=== PATIENT | male | born 1955 | race Caucasian/White ===

== ENCOUNTER → 2018-10-24 | Day surgery (SDC) | payer MEDICARE, OTHER ==
[~2018-10-24] MED LIST: CYCL10TA2 PO; HYDR-2679 PO; HYDROmorphone 2 MG/ML VIAL IV PRN; IBUP-1060 PO; IV RINGERS,LACTATED 1000ML 1,000 ML IV SCH; LIDOCAINE 1% PF 2 ML VIAL. ID PRN; MORPHINE SULFATE 4 MG/ML VIAL. IV PRN; MULT-208 PO; OMEG1CAP6 PO; ONDANSETRON PF 4 MG/2 ML VIAL. IV PRN; PROCHLORPERAZINE 10 MG/2 ML VIAL. IV PRN; PROPOFOL 40 ML IV ONE; fentaNYL PF VIAL 100 MCG/2 ML VIAL IV PRN
--- NOTE | 2018-10-24 08:20 | CONS ---
DATE OF CONSULTATION: 10/24/2018 REFERRING PHYSICIAN: Dr. Taco Perez. REASON FOR CONSULTATION: Colorectal screening. HISTORY OF PRESENT ILLNESS: A 63-year-old male with past medical history of significant back surgery and inguinal hernia repair, who is seen in consultation for screening colon exam. Bowel habits are regular without diarrhea or constipation. There has been no melena and/or hematochezia. Weight and appetite are stable. No family history of colon polyps or colon cancer is noted. He is otherwise without additional complaints. PAST MEDICAL HISTORY: Status post back surgery, hernia repair, osteoarthrosis. ALLERGIES: None. MEDICATIONS: Include Ibuprofen 800 mg p.r.n., omega-3 fatty acids, fish oil 1 daily. FAMILY AND SOCIAL HISTORY: Significant for breast cancer with his mother, high blood pressure with his mother, heart attack with his father, stroke with his father. 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 REVIEW OF SYSTEMS: As per records. PHYSICAL EXAMINATION: GENERAL: Reveals a well-nourished, well-developed male. He is alert, cooperative, in no acute distress. VITAL SIGNS: Temperature is 97.3, pulse 78, respirations 20. HEENT: Normocephalic and atraumatic head. Pupils and extraocular muscles are not tested. Sclerae anicteric. NECK: Supple. LUNGS: Clear. CARDIOVASCULAR: Reveals an S1, S2 without S3, S4 or appreciable murmur. ABDOMEN: Reveals soft abdomen, normal bowel sounds without appreciable hepatosplenomegaly. EXTREMITIES: Reveals no cyanosis, clubbing or edema. IMPRESSION AND PLAN: Colorectal screening is warranted at this time. Risks and benefits of procedure including risk of hemorrhage and perforation during the operation have been discussed. The patient is willing to proceed. MIRIAN ALCANTARA MD DR: ELIZABETH/les JOB#: [id number] / [id number] TACO Whaley MD
[2018-10-24 08:53] VITALS: BP 112/62
--- NOTE | 2018-10-25 16:08 | PATHOLOGY ---
[facility] Accession Number: [id number] . 01 Material submitted: . HEPATIC FLEXURE POLYP . 01 Clinical history: . Screening . 02 Diagnosis: Colon biopsies, hepatic flexure polyp: - Tubular adenoma. (JPM:anu; 10/25/2018) QMS/10/25/2018 . 02 Comment: There is no high-grade dysplasia or evidence of malignancy. . 02 Electronically signed: . Himanshu Olson MD, Pathologist NPI- [id number] . 01 Gross description: . Received in formalin labeled "Leonard Akins, hepatic flexure polyp," are 2 segments of spencer soft tissue measuring 1.2 x 0.4 x 0.3 cm in aggregate dimensions and ranging from 0.5 to 0.7 cm in maximum dimension. The specimen is submitted entirely in cassette A1. (TSD; 10/24/2018) TOB/TOB . 02 Pathologist provided ICD-10: D12.3 . 02 CPT . 231173 Specimen Comment: A courtesy copy of this report has been sent to Specimen Comment: [phone], . Specimen Comment: Report sent to / DR DRAKE Performed at: 01 [facility] [address] [facility] [facility] [address] [facility] [address], [place], [place] [id number] MD Jeyson Curtis MD Phone: [phone] Performed at: 02 [facility] [address] [place], [place] [id number] MD Himanshu Olson MD Phone: [phone]
== END | disposition home or self-care (01) ==
LOC: ENDOS 07:06
PROVIDERS: ATTEND Internal Medicine Gastroenterology
DX: Z12.11 Encounter for screening for malignant neoplasm of colon (principal); D12.3 Benign neoplasm of transverse colon; K64.0 First degree hemorrhoids; M19.90 Unspecified osteoarthritis, unspecified site; Z79.899 Other long term (current) drug therapy; Z80.3 Family history of malignant neoplasm of breast; Z82.49 Family history of ischemic heart disease and other diseases of the circulatory system; Z82.3 Family history of stroke; Z98.890 Other specified postprocedural states
CPT/HCPCS: 45385; 88305; J2704; 45380

== ENCOUNTER → 2019-10-31 | Outpatient (CLI) | payer MEDICARE ==
[2018-10-24 08:53] VITALS: BP 112/62
[~2019-10-31] MED LIST changes: +BUPIVACAINE MPF 0.5% 10 ML VIAL for KCIC. IM ONE; +CONTRAST GIVEN. MC PRN; -HYDROmorphone 2 MG/ML VIAL IV PRN; +IOHEXOL 300 MG/ML 50 ML VIAL. INT ART ONE; -IV RINGERS,LACTATED 1000ML 1,000 ML IV SCH; +LIDOCAINE 1% Multi-Dose 20 ML VIAL. ID ONE; -LIDOCAINE 1% PF 2 ML VIAL. ID PRN; -MORPHINE SULFATE 4 MG/ML VIAL. IV PRN; -ONDANSETRON PF 4 MG/2 ML VIAL. IV PRN; -PROCHLORPERAZINE 10 MG/2 ML VIAL. IV PRN; -PROPOFOL 40 ML IV ONE; -fentaNYL PF VIAL 100 MCG/2 ML VIAL IV PRN; +methylPREDNISolone ACETATE 40 MG/ML VIAL. INT ART ONE
--- NOTE | 2019-10-31 12:08 | KCIC ---
Therapeutic right hip injection using fluoroscopic guidance: Indication: Right. hip pain.. Technique: The procedure was explained to the patient as were potential risks. All questions were answered. Informed written consent was obtained. The right hip was prepped and draped in the usual sterile manner. Following administration of local anesthetic, a 22-gauge spinal needle was advanced into the hip joint without difficulty, with care taken to avoid the vascular structures. Stylet was removed and following negative aspiration, a mixture of 5 cc Omnipaque-300, 2 cc (80 mg) Depo-Medrol and 8 cc 0.5% bupivacaine were injected without difficulty. Fluoroscopy demonstrates uniform and satisfactory distribution of the injection through the hip. The needle was removed. There was good hemostasis at the injection site. The patient left in stable condition without immediate complication. The patient was given postprocedural instructions, instructed to contact us or the emergency room if there are any complications. 52 seconds fluoroscopic time used for the study. One image shows needle tip at the lateral femoral head/neck junction with contrast material extending throughout the joint space. There is moderate to severe degenerative change at the right hip joint. Impression: Successful right hip therapeutic injection. Electronically signed by: Leonard Samuel MD (10/31/2019 12:05 PM) [facility]-KCIC2
== END | disposition home or self-care (01) ==
LOC: KCIC 10:13
PROVIDERS: ATTEND Orthopaedic Surgery
DX: M25.551 Pain in right hip (principal)
CPT/HCPCS: 20610; 77002; J1030; Q9967

== ENCOUNTER → 2019-11-25 | Outpatient (CLI) | payer MEDICARE ==
[2018-10-24 08:53] VITALS: BP 112/62
[~2019-11-25] MED LIST changes: -BUPIVACAINE MPF 0.5% 10 ML VIAL for KCIC. IM ONE; -CONTRAST GIVEN. MC PRN; -IOHEXOL 300 MG/ML 50 ML VIAL. INT ART ONE; -LIDOCAINE 1% Multi-Dose 20 ML VIAL. ID ONE; -methylPREDNISolone ACETATE 40 MG/ML VIAL. INT ART ONE
--- NOTE | 2019-11-25 13:10 | KCIC ---
MR of the right knee HISTORY: Lateral pain for 4 years. TECHNIQUE: Routine multiplanar sequences are obtained. FINDINGS: Degenerative tear of the medial meniscus. No evidence of lateral meniscal tear. Anterior and posterior cruciate ligaments are intact. Medial collateral ligament is intact. Iliotibial band unremarkable. Fibular collateral ligament unremarkable. Biceps femoris tendon is intact. Popliteus tendon attachment is intact. No evidence of abnormality involving the extensor mechanism. Trace joint fluid. Severe thinning of the patellar articular cartilage. Moderate to severe thinning of the medial patellar cartilage. No evidence of acute fracture. No aggressive bone destruction. No acute soft tissue abnormality. IMPRESSION: 1. Medial meniscal tear. 2. DJD with chondromalacia. Electronically signed by: Leonard Middleton MD (11/25/2019 1:06 PM) [id number]
== END ==
LOC: KCIC MRI 11:28
PROVIDERS: ATTEND Orthopaedic Surgery
DX: S83.241A Other tear of medial meniscus, current injury, right knee, initial encounter (principal); M17.11 Unilateral primary osteoarthritis, right knee; M94.261 Chondromalacia, right knee; X58.XXXA Exposure to other specified factors, initial encounter; Y92.89 Other specified places as the place of occurrence of the external cause; Y99.8 Other external cause status; Y93.89 Activity, other specified
CPT/HCPCS: 73721

== ENCOUNTER → 2020-09-29 | Outpatient (CLI) | payer MEDICARE ==
[2018-10-24 08:53] VITALS: BP 112/62
[~2020-09-29] MED LIST changes: +ASPI325T11 PO; +HYDR-2765 PO; +PROM25TA10 PO
== END ==
LOC: LAB 10:05
PROVIDERS: ATTEND Orthopaedic Surgery
DX: Z01.812 Encounter for preprocedural laboratory examination (principal); S83.241A Other tear of medial meniscus, current injury, right knee, initial encounter; Z20.822 Contact with and (suspected) exposure to COVID-19; X58.XXXA Exposure to other specified factors, initial encounter; Y93.89 Activity, other specified; Y92.89 Other specified places as the place of occurrence of the external cause; Y99.8 Other external cause status
CPT/HCPCS: U0003

== ENCOUNTER 2020-10-02 07:09 | Day surgery (SDC) | payer MEDICARE ==
--- NOTE | 2020-10-01 19:25 | PDOC1 ---
History and Physical Date of Admission Date of Admission 10/02/2020 Identification/Chief Complaint Chief Complaint Right knee pain Source Source: Chart review, Patient History of Present Illness History of Present Illness Mr. Guardado is a 64-year-old male with right knee pain was particularly severe when going up stairs. Going down stairs didn't bother him too much. He described his pain as "shooting" and located much of his pain laterally, but he also had pain anteriorly. I ordered an MRI of his right knee and this shows meniscus tears. Currently, he states that his right knee continues to bother him. He locates his pain laterally and exacerbated by stairs. Pt also reports occasional episodes of sharp pain (9/10) in his knee when [place]. Past Medical History Past Medical History Kidney stones. Hearing loss. Past Surgical History Past Surgical History left wrist left knee inguinal hernia repair-Rt 02/02/18 Back Surgery for Spinal Stenosis and bulging dis L4-5 Past Surgical History: Hernia Repair Family History Family History Mother, breast cancer Family History: Cancer Current Medications Current Medications Current Medications Ondansetron HCl (Zofran) 4 mg PRN Q6HRS PRN IV NAUSEA/VOMITING; Start 10/02/20 at 07:00; Stop 10/03/20 at 06:59 Fentanyl Citrate (Fentanyl 2ml Vial) 25 mcg PRN Q5MIN PRN IV MILD PAIN 1-3; Start 10/02/20 at 07:00; Stop 10/03/20 at 06:59 Fentanyl Citrate (Fentanyl 2ml Vial) 50 mcg PRN Q5MIN PRN IV MODERATE TO SEVERE PAIN; Start 10/02/20 at 07:00; Stop 10/03/20 at 06:59 Morphine Sulfate (Morphine Sulfate) 1 mg PRN Q10MIN PRN IV SEVERE PAIN 7-10; Start 10/02/20 at 07:00; Stop 10/03/20 at 06:59 Ringer's Solution 1,000 ml @ 30 mls/hr Q24H IV ; Start 10/02/20 at 07:00; Stop 10/02/20 at 18:59 Lidocaine HCl (Xylocaine-Mpf 1% 2ml Vial) 2 ml PRN 1X PRN ID PRIOR TO IV START; Start 10/02/20 at 07:00; Stop 10/03/20 at 06:59 Hydromorphone HCl (Dilaudid) 0.5 mg PRN Q10MIN PRN IV SEV PAIN, Second choice; Start 10/02/20 at 07:00; Stop 10/03/20 at 06:59 Prochlorperazine Edisylate (Compazine) 5 mg PACU PRN PRN IV NAUSEA, MRX1; Start 10/02/20 at 07:00; Stop 10/03/20 at 06:59 Cefazolin Sodium/ Dextrose 50 ml @ 100 mls/hr 1X PREOP PRN IV PRIOR TO PROCEDURE; Start 10/02/20 at 06:00; Stop 10/02/20 at 18:00 Active Scripts Active Reported Ibuprofen 800 Mg Tablet 800 Mg PO PRN Q6HRS PRN Fish Oil 1,000 Mg Capsule ([place]-3 Fatty Acids/Fish Oil) 1 Each Capsule 1 Each PO DAILY Multi-Day Vitamins (Multivitamin) 1 Each Tablet 1 Tab PO DAILY Allergies Allergies: Coded Allergies: No Known Drug Allergies (Unverified , 10/24/18) Physical Exam General: Alert, Cooperative HEENT: Atraumatic Lungs: Normal air movement Heart: RRR Abdomen: Soft Extremities: Other (The RIGHT knee shows normal alignment, no masses. Slightly antalgic gait, lateral thrust seems improved. There is no effusion. There is tenderness at the medial joint line. Naga's test is positive. There is medial joint line pain with deep flexion and especially with rotation of the t ibia. The lateral joint line shows no tenderness. Range of motion is 0-135 degrees. There is trace patellofemoral crepitus. The knee is stable to varus and valgus stress without subluxation or laxity. The ACL feels intact on Ursula testing. Muscle strength is normal (5/5) for quadriceps and hamstrings, and muscle tone is normal. The skin is normal with no scars, rashes, lesions or ulcers. Light touch sensation is intact. No edema and no varicosities. Dorsalis pedis pulse is intact and capillary refill is normal) Skin: No breakdown, No significant lesion Neuro: Normal speech, Sensation intact Images Images Reports reviewed and images independently reviewed. He does have some osteoa rthritis but is fairly mild, and there is minimal malalignment. He definitely has a medial meniscus tear. [facility] [address] [place] [address] IMAGING REPORT Signed PATIENT: LEONARD GUARDADO ACCOUNT: [id number] : 1955 LOCATION: [facility] AGE: 64 SEX: M EXAM STATUS: REG CLI ORD. PHYSICIAN: ANKITA SERRANO MD REASON: PROCEDURE: KNEE STANDING BILAT AP EXAM: Bilateral knees, 3 views. HISTORY: Pain. COMPARISON: 08/04/2015 FINDINGS: 3 views of both knees are obtained. There is mild bilateral compartment joint space narrowing. There is no fracture, dislocation or subluxation. There is no significant joint effusion. There is minimal enthesopathy along the superior patellae. IMPRESSION: Mild bilateral medial compartment joint space narrowing. No acute osseous finding. Electronically signed by: Denisse Conroy MD (10/24/2019 10:20 AM) [facility] DICTATED and SIGNED BY: DENISSE CONROY MD DATE: 10/24/[address] [address] IMAGING REPORT Signed PATIENT: LEONARD GUARDADO ACCOUNT: [id number] : 1955 LOCATION: [facility] MRI AGE: 64 SEX: M EXAM STATUS: REG CLI ORD. PHYSICIAN: ANKITA SERRANO MD REASON: RIGHT KNEE PAIN PROCEDURE: LOWER EXT JOINT WO RT MR of the right knee HISTORY: Lateral pain for 4 years. TECHNIQUE: Routine multiplanar sequences are obtained. FINDINGS: Degenerative tear of the medial meniscus. No evidence of lateral meniscal tear. Anterior and posterior cruciate ligaments are intact. Medial collateral ligament is intact. Iliotibial band unremarkable. Fibular collateral ligament unremarkable. Biceps femoris tendon is intact. Popliteus tendon attachment is intact. No evidence of abnormality involving the extensor mechanism. Trace joint fluid. Severe thinning of the patellar articular cartilage. Moderate to severe thinning of the medial patellar cartilage. No evidence of acute fracture. No aggressive bone destruction. No acute soft tissue abnormality. IMPRESSION: 1. Medial meniscal tear. 2. DJD with chondromalacia. Electronically signed by: Leonard Middleton MD (11/25/2019 1:06 PM) [id number] DICTATED and SIGNED BY: LEONARD MIDDLETON MD DATE: 11/25/19 1306 VTE Prophylaxis Ordered VTE Prophylaxis Devices: Yes VTE Pharmacological Prophylaxi: Yes Assessment/Plan Assessment/Plan He has moderate mechanical symptoms in the knee and sharp pains. He and I have discussed options for treatment including continued nonoperative treatment, arthroscopic meniscectomy, or consider a total knee arthroplasty. I do not feel like his knee is bad enough to warrant arthroplasty based on the MRI findings, minimal narrowing radiographically, no significant malalignment, and with the symptomatology which seems meniscal not arthritic. The lateral thrust I saw at one time is concerning, but seems intermittent. He does not want a knee re placement currently. Arthroscopic meniscectomy is the logical option, and he and I have discussed the risks benefits and alternatives. We discussed potential risks such as bleeding, infection, neurovascular injury, blood clots, progressive arthritis, continued pain, or other potential surgical or anesthetic complications. All of his questions about surgery were answered and he desires to proceed. He is here today for elective right knee arthroscopy with medial meniscectomy. Justifications for Admission Other Justification ANKITA SERRNAO MD Oct 01, 2020 19:25
[~2020-10-02] VITALS: Ht 182.9 cm; Wt 85.7 kg
[~2020-10-02 07:09] MED LIST changes: -ASPI325T11 PO; -HYDR-2765 PO; +HYDROmorphone 2 MG/ML VIAL IV PRN; +IV RINGERS,LACTATED 1000ML 1,000 ML IV SCH; +LIDOCAINE 1% PF 2 ML VIAL. ID PRN; +MORPHINE SULFATE 2 MG/ML VIAL. IV PRN; +ONDANSETRON PF 4 MG/2 ML VIAL. IV PRN; +PROCHLORPERAZINE 10 MG/2 ML VIAL. IV PRN; -PROM25TA10 PO; +fentaNYL PF VIAL 100 MCG/2 ML VIAL IV PRN
[2020-10-02] MEDS ORDERED: EPINEPHrine VIAL 30 MG/30 ML VIAL ONE (08:33)
[2020-10-02] MEDS ORDERED: BUPIVACAINE-EPI 0.25%-1:200000 MPF 30 ML VIAL. INJ ONE ×2 (08:45→09:00)
[2020-10-02] MEDS ORDERED: fentaNYL PF VIAL 100 MCG/2 ML VIAL ONE (08:57)
[2020-10-02] MEDS ORDERED: LIDOCAINE 2% PF 5 ML VIAL. ONE (09:07)
[2020-10-02] MEDS ORDERED: PROPOFOL 10 MG/ML (20ML) VIAL. IV ONE ×2 (09:07→09:28)
[2020-10-02] MEDS ORDERED: ONDANSETRON PF 4 MG/2 ML VIAL. ONE (09:07)
[2020-10-02] MEDS ORDERED: DEXAMETHASONE SOD PHOS 4 MG/ML VIAL ONE (09:07)
[2020-10-02] MEDS ORDERED: GLYCOPYRROLATE 1 MG/5 ML VIAL. ONE (09:08)
[2020-10-02] MEDS ORDERED: SEVOFLURANE 31 TO 60 MINUTES. IH ONE (09:20)
--- NOTE | 2020-10-02 09:37 | PDOC4 ---
Operative Note Operative Note Date of Procedure: October 02, 2020 Preoperative Diagnosis: right knee medial meniscus tear Postoperative Diagnosis: complex tear medial meniscus, current injury, right knee, initial encounter, S83.231A Procedures Performed: right knee arthroscopy, surgical, with meniscectomy, MEDIAL, including meniscal shaving, including debridement/shaving of articular cartilage (chondroplasty) CPT 09913 Surgeon: Ankita Rod MD Supervisor [employer]ation [employer] Assembly: RAYMOND Lin Anesthesia: General Estimated Blood Loss: 10 mL Specimens: none Drains: none Complications: none Tourniquet time: 20 minutes at 300 mm Hg Indications for Procedure: The patient is a 65-year-old with right knee pain, unrelieved with nonoperative treatment. Exam and MRI are consistent with a meniscus tear. We talked about the risks and benefits of proceeding with an arthroscopic procedure. We talked about potential risks of ongoing pain, progressive arthritis, bleeding, infection, blood clots, or other potential surgical or anesthetic complications. All of the patient's questions about surgery were answered and they desired to proceed. Written consent was obtained. Description of Operation: The patient was identified in the preoperative holding area. The correct right knee was marked by me. The patient was taken to the operating room, where a general anesthetic was used. Preoperative antibiotics were given intravenously. A time-out procedure was performed. A tourniquet was placed on the upper thigh. Local anesthetic 20 mL of 0.25% bupivacaine was injected using sterile techni que into the knee joint. The limb was prepared circumferentially with ChloraPrep solution and sterile waterproof arthroscopy drapes were applied. The limb was exsanguinated with an Esmarch bandage and the tourniquet was inflated. Lateral and medial arthroscopy portals were established. The medial meniscus showed a complex unrepairable tear with unstable flaps. A meniscectomy was performed with basket forceps and the motorized shaver back to a smooth stable base, and the resection tapered into the middle one-third of the meniscus.The medial tibiofemoral joint showed normal articular surfaces so no chondroplasty was required.The intercondylar notch was free of loose bodies, and the ACL was intact. The lateral tibiofemoral joint showed a normal lateral meniscus, so no lateral meniscectomy was required.The lateral articular surfaces showed normal articular surfaces so no chondroplasty was required. The patellofemoral joint showed chondromalacia [place] grade I, so no chondroplasty was required. The suprapatellar pouch, medial and lateral gutters were free of loose bodies. Copious irrigation was used to drain all meniscal and chondral fragments, and the knee was drained of fluid. The portals were closed with #3-0 Prolene interrupted sutures. Additional local anesthetic, 30 mL of 0.25% bupivacaine with epinephrine was injected. A bulky sterile dressing was applied and the tourniquet was released. Needle and sponge counts were correct and there were no apparent complications. ANKITA ROD MD Oct 02, 2020 09:37
[2020-10-02] MEDS ORDERED: HYDR-2765 PO (09:59)
[2020-10-02] MEDS ORDERED: ASPI325T11 PO (10:01)
[2020-10-02] MEDS ORDERED: PROM25TA10 PO (10:01)
[2020-10-02] MEDS ORDERED: HYDROcodone/APAP 7.5/325MG 1 TAB TABLET PO ONE ×2 (10:15)
[2020-10-02 10:25] VITALS: BP 115/75
[2020-12-24] MEDS ORDERED: HYDR-2765 PO (15:57)
== END 2020-10-02 11:05 | disposition home or self-care (01) ==
LOC: SURG 07:09
PROVIDERS: ATTEND Orthopaedic Surgery
DX: S83.231A Complex tear of medial meniscus, current injury, right knee, initial encounter (principal); M94.261 Chondromalacia, right knee; M19.90 Unspecified osteoarthritis, unspecified site; Z85.828 Personal history of other malignant neoplasm of skin; Z79.82 Long term (current) use of aspirin; Z79.899 Other long term (current) drug therapy; Z98.890 Other specified postprocedural states; X58.XXXA Exposure to other specified factors, initial encounter; Y93.89 Activity, other specified; Y92.89 Other specified places as the place of occurrence of the external cause; Y99.8 Other external cause status
CPT/HCPCS: 29881; J0171; J0690; J1100; J2405; J2704; J3010; J3490

== ENCOUNTER → 2020-12-07 | Outpatient (CLI) | payer MEDICARE ==
[~2020-12-07] MED LIST changes: +ASPI325T11 PO; +HYDR-2765 PO; -HYDROmorphone 2 MG/ML VIAL IV PRN; -IV RINGERS,LACTATED 1000ML 1,000 ML IV SCH; -LIDOCAINE 1% PF 2 ML VIAL. ID PRN; -MORPHINE SULFATE 2 MG/ML VIAL. IV PRN; -ONDANSETRON PF 4 MG/2 ML VIAL. IV PRN; -PROCHLORPERAZINE 10 MG/2 ML VIAL. IV PRN; +PROM25TA10 PO; -fentaNYL PF VIAL 100 MCG/2 ML VIAL IV PRN
[2020-12-07 10:01] LABS: ALBUMIN 3.4 g/dL (3.4-5.0); ANION GAP 10 (6-14); BLOOD UREA NITROGEN 23 mg/dL (8-26); C-REACTIVE PROTEIN < 0.5 mg/L (0-3.3); CALCIUM 8.6 mg/dL (8.5-10.1); CARBON DIOXIDE 25 mmol/L (21-32); CHLORIDE 106 mmol/L (98-107); CREATININE 0.9 mg/dL (0.7-1.3); GFR 84.2; GLUCOSE 100 mg/dL (70-99); POTASSIUM 3.9 mmol/L (3.5-5.1); SODIUM 141 mmol/L (136-145)
[2020-12-07 10:33] LABS: BASO % 1 % (0-3); EOS # 0.1 x10^3/uL (0.0-0.7); EOS % 1 % (0-3); HEMATOCRIT 41.8 % (39.0-53.0); HEMOGLOBIN 14.3 g/dL (13.0-17.5); LYMPH # 1.8 x10^3/uL (1.0-4.8); LYMPH % 33 % (24-48); MEAN CORPUSCULAR HEMOGLOBIN 31 pg (25-35); MEAN CORPUSCULAR HGB CONC 34 g/dL (31-37); MEAN CORPUSCULAR VOLUME 89 fL (79-100); MONO # 0.4 x10^3/uL (0.0-1.1); MONO % 7 % (0-9); NEUT # 3.3 x10^3/uL (1.8-7.7); NEUT % 58 % (31-73); PLATELET COUNT 251 x10^3/uL (140-400); RED BLOOD COUNT 4.68 x10^6/uL (4.30-5.70); RED CELL DISTRIBUTION WIDTH 13.1 % (11.5-14.5); WHITE BLOOD COUNT 5.6 x10^3/uL (4.0-11.0)
[2020-12-07 10:46] LABS: PROTHROMBIN TIME PATIENT 12.4 SEC (11.7-14.0)
--- NOTE | 2020-12-07 12:48 | EKG ---
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
--- NOTE | 2020-12-07 17:44 | RAD ---
XR CHEST 2V History: Reason: PRE SURG EVAL, RT HIP ARTHROPLASTY ON 12/22/20 / Spl. Instructions: JOINT CLASS 12/07 / History: Comparison: None. Findings: Hyperinflation. Emphysematous changes. Interstitial reticular opacities. No consolidation or pleural effusion. No pneumothorax. Normal heart size. Impression: 1. Hyperinflation with emphysematous changes. Electronically signed by: Wilmar Taylor DO (12/07/2020 5:41 PM) [id number]
[2020-12-08 02:10] LABS: HEMOGLOBIN A1C 5.6 % (4.8-5.6)
== END ==
LOC: SURGPAT 12:38
PROVIDERS: ATTEND Orthopaedic Surgery
DX: Z01.818 Encounter for other preprocedural examination (principal); M16.11 Unilateral primary osteoarthritis, right hip; J43.9 Emphysema, unspecified; Z96.641 Presence of right artificial hip joint
CPT/HCPCS: 36415; 71046; 80048; 82040; 82306; 83036; 85025; 85610; 85730; 86140; 87641; 93005

== ENCOUNTER → 2020-12-18 | Outpatient (CLI) | payer MEDICARE ==
[~2020-12-18] MED LIST changes: +WARF-31 PO
== END ==
LOC: LAB 10:14
PROVIDERS: ATTEND Orthopaedic Surgery
DX: Z01.812 Encounter for preprocedural laboratory examination (principal); M16.11 Unilateral primary osteoarthritis, right hip; Z20.822 Contact with and (suspected) exposure to COVID-19
CPT/HCPCS: U0003; U0005

== ENCOUNTER 2020-12-22 06:05 | Observation (INO) | payer MEDICARE ==
[~2020-12-22] VITALS: Ht 182.9 cm; Wt 82.8 kg
[2020-12-22] VITALS (8 sets, daily range): BP systolic 119–140; BP diastolic 65–79
[~2020-12-22 06:05] MED LIST changes: +ACETAMINOPHEN 500 MG TABLET PO PRN; +GABAPENTIN 300 MG CAPSULE. PO PRN; +HYDROmorphone 2 MG/ML VIAL IVP PRN; +IV RINGERS,LACTATED 1000ML 1,000 ML IV SCH; +MORPHINE SULFATE 2 MG/ML VIAL. IVP PRN; +MORPHINE SULFATE 5 MG, KETOROLAC 30MG VIAL 30 MG, ROPIVacaine 0.5% PF 60 ML, EPINEPHrin... INT ART ONE; +PROCHLORPERAZINE 10 MG/2 ML VIAL. IVP PRN; +TRANEXAMIC ACID 1,000 MG in IV NS 50ML -- 1ST BAG INJ ONE; -WARF-31 PO; +ceFAZolin SODIUM IV Push 1 GM VIAL. IVP PRN; +fentaNYL PF VIAL 100 MCG/2 ML VIAL IVP PRN
[2020-12-22] MEDS: MELOXICAM 7.5 MG TABLET PO PRN ×2 (06:49→11:06)
[2020-12-22] MEDS ORDERED: ceFAZolin SODIUM IV Push 1 GM VIAL. IVP ONE (07:00)
[2020-12-22 07:02] LABS: PROTHROMBIN TIME PATIENT 13.1 SEC (11.7-14.0)
[2020-12-22] MEDS ORDERED: ONDANSETRON PF 4 MG/2 ML VIAL. ONE (07:06)
[2020-12-22] MEDS ORDERED: LIDOCAINE 2% PF 5 ML VIAL. ONE (07:06)
[2020-12-22] MEDS ORDERED: PROPOFOL 10 MG/ML (20ML) VIAL. IV ONE (07:06)
[2020-12-22] MEDS ORDERED: MIDAZOLAM HCL/PF 2 MG/2 ML VIAL. ONE (07:06)
[2020-12-22] MEDS ORDERED: SEVOFLURANE > 120 MINUTES. IH ONE (07:06)
[2020-12-22] MEDS ORDERED: fentaNYL PF VIAL 100 MCG/2 ML VIAL ONE ×2 (07:06→08:35)
[2020-12-22] MEDS ORDERED: DEXAMETHASONE SOD PHOS 4 MG/ML VIAL ONE (07:07)
[2020-12-22] MEDS ORDERED: VANCOMYCIN 1 GM VIAL. ONE (07:40)
[2020-12-22] MEDS ORDERED: 0.9 % SODIUM CHLORIDE 10 ML DISP.SYRIN. IV PRN (07:45)
[2020-12-22] MEDS ORDERED: CALCIUM CARBONATE 500 MG TAB.CHEW PO PRN (07:45)
[2020-12-22] MEDS ORDERED: DEXTROSE 50% 25 GM / 50ML DISP.SYRIN. IV PRN (07:45)
[2020-12-22] MEDS ORDERED: ZOLPIDEM 5 MG TABLET. PO PRN (07:45)
[2020-12-22] MEDS ORDERED: diphenhydrAMINE 50 MG/ML VIAL IVP PRN (07:45)
[2020-12-22] MEDS ORDERED: PROCHLORPERAZINE 5 MG TABLET. PO PRN (07:45)
[2020-12-22] MEDS ORDERED: fentaNYL PF VIAL 100 MCG/2 ML VIAL IVP PRN (07:45)
[2020-12-22] MEDS ORDERED: MORPHINE SULFATE 2 MG/ML VIAL. IVP PRN (07:45)
[2020-12-22] MEDS ORDERED: TRANEXAMIC ACID 1,000 MG in IV NS 50ML -- 2ND BAG INJ ONE (08:00)
[2020-12-22] MEDS ORDERED: GLYCOPYRROLATE 1 MG/5 ML VIAL. ONE (08:04)
[2020-12-22] MEDS ORDERED: TRANEXAMIC ACID in NS IVPB 50 ML ONE ×2 (08:13→08:14)
--- NOTE | 2020-12-22 08:44 | HP ---
ADMIT DATE: 12/22/2020 PREOPERATIVE HISTORY AND PHYSICAL CHIEF COMPLAINT: Right hip and groin pain. HISTORY OF PRESENT ILLNESS: The patient is a 65-year-old male with about a 5-year history of right knee pain. He underwent injections, treated with a brace for his bowleggedness, eventually was scheduled for a total knee surgery that was delayed by CRISTINA, but then underwent a knee arthroscopy and subsequent cortisone shot in the knee, which did not give him help. He has some lateral left-sided knee pain and giving way and has more severe pain getting in and out of a car, going upstairs, less pain if he puts his leg a bit further away from the midline, and as he walks, he steadies himself, but indicates right groin area pain when he walks and ongoing pain in the right knee. PAST MEDICAL HISTORY: Hearing loss and kidney stones. PAST SURGICAL HISTORY: Right knee arthroscopy, back surgery, inguinal hernia repair, left wrist and left knee surgeries. FAMILY HISTORY: Breast cancer in his mother. SOCIAL HISTORY: Denies smoking, alcohol or drug use. MEDICATIONS: Include some hydrocodone, multivitamins, aspirin, which was stopped and ibuprofen. ALLERGIES: He has no known drug allergies. REVIEW OF SYSTEMS: Continues to have the right groin, hip and knee area pain and denies any recent chest pain, shortness of breath, recent febrile illness or other constitutional symptoms. PHYSICAL EXAMINATION: VITAL SIGNS: Per admission sheet. HEENT: Atraumatic, normocephalic. HEART: Regular rate and rhythm. LUNGS: Clear to auscultation bilaterally. ABDOMEN: Benign. EXTREMITIES: Examination of the right hip reveals decreased range of motion in all planes that is more severely affected than the left. He has an antalgic gait and the right hip is very painful on his limits of his already severely limited range of motion, where he has minimal discomfort on the left. He has a slight leg length discrepancy with the right being shorter about a quarter of an inch. Negative straight leg raise bilaterally. Minimal trochanteric bursitis. He has varus alignment physiologically in bilateral knees. Normal alignment, stability, bilateral ankles and he does have some tenderness over bilateral medial joint lines on both knees and tenderness over the iliotibial band on the right side, most notable at the lateral epicondyle area of the right knee that is not present on the left. IMAGING: X-rays, AP pelvis show severe [id number] degenerative change in the right hip with deformity of the femoral head, subchondral sclerosis with cyst formation. Mild degenerative changes are noted at the left hip and he has some mild joint line narrowing medial compartments of both knees. ASSESSMENT: Osteoarthritis, right hip; right hip and knee pain; iliotibial band syndrome; history of arthroscopic knee surgery. TREATMENT PLAN: I had gone over with him the severe degenerative change of the right hip, which includes deformity of his femoral head accounting for some leg length discrepancy as well. I think part of his problem with the knee is iliotibial band syndrome and part of it is likely radiating from the right hip as well as the mild degenerative change noted on x-rays. I talked about the fact that the planned hip arthroplasty may not necessarily get rid of all of his knee pain and we talked through risks, benefits, postoperative course of hip arthroplasty including the possibility of leg length inequality, infection, nerve or blood vessel damage, medical or other anesthetic complications among others including premature wear, loosening or instability. All of his questions were answered. He wishes to proceed with surgical evaluation and treatment having given informed consent today and he will undergo [facility] observation to follow. DIANA DANGELO MD DR: IOANA/les JOB#: [id number] / [id number]
--- NOTE | 2020-12-22 10:45 | NUR ---
Arrived to unit by bed from PACU. Awakens easily. No c/o at this time. Right hip dressing d/i with dm intact. Ice pack applied. Pt able to wiggle toes easily, warm touch and pedal pulses + bilaterally. ALVARO's and SCD's on bilaterally. IVF's intact and infusing. Oriented to room and controls. Side rails up x's 2 with call light with in reach. Cont. to monitor.
--- NOTE | 2020-12-22 12:37 | RAD ---
XR BILATERAL HIP (WITH OR WITHOUT PELVIS) 2 VIEWS_RIGHT Clinical Indication: Reason: POST OP / Spl. Instructions: / History: Comparison: Radiograph, 2 views 11/12/2020. Findings: There is right hip arthroplasty. The alignment is anatomic. There is no acute fracture. There is stab le mild to moderate left hip arthropathy. No acute pelvic bone abnormality. There is scattered subcut aneous air about the right hip. IMPRESSION: 1. Post right hip arthroplasty, no acute complication. Electronically signed by: Zev Steele MD (12/22/2020 12:34 PM) [id number]
--- NOTE | 2020-12-22 13:50 | PDOC4 ---
Operative Note Operative Note Date of surgery: 12/22/2020 Preoperative diagnosis: Degenerative joint disease right hip Postoperative diagnosis: Same Operative procedure: Right total hip arthroplasty with anterior approach Surgeon Constantin Swage Toolsetter: Garland mandujano Anesthesia: General Estimated blood loss: 250 cc Complications: None Specimens: Femoral head to pathology Drains: None Operative indications: Please see my orthopedic clinic note and dictated history and physical for detailed operative indications and note that we covered risks benefits postoperative course of the procedure. He had requested intraoperative pictures of the femoral head to see how bad the arthritis was, we talked through the possibility of infection nerve or blood vessel damage leg length inequality instability premature wear or loosening medical or other anesthetic complications among others all his questions were answered and he wishes to proceed with surgical evaluation and treatment having given informed consent Operative text: Patient was identified procedure verified patient placed in the supine position on the [place] fracture table after adequate amounts of general anesthesia were administered. All bony prominences were well-padded and right hip was prepped and draped in the standard sterile fashion. After timeout was performed patient procedure identified and verified an incision was made just distal to the anterior superior iliac spine running along the tensor fascia chely for a distance of about 4 inches. Fascia was incised tensor fascia chely was taken laterally and circumflex vessels were located and coagulated and the anterior capsule was exposed with the rectus femoris gently retracted medially along with the underlying fascia that was dissected free. Capsule was split in a T-shaped incision and capsule was preserved and tagged and further superior release was carried out with the hip in external rotation. Hip was returned to 40 degrees external rotation and a napkin ring cut was made with an Avenir Arsen broach for reference napkin ring was removed and femoral head was removed and sized. Reaming was carried out from a size 55 to a size 59 with a size 60 cluster hole cup placed in proper version and alignment under fluoroscopic guidance and achieved a very solid scratch fit and therefore no screw fixation was applied. A 40 mm vitamin E liner was impacted into place. Femur was brought into maximum external rotation extension and adduction and release was carried out at the 11 o'clock position to free up the femur and retractors were placed medially and above the greater trochanter for maximum femoral exposure box osteotome was used along with the rattail rasp and successive size broaching up to a size 7 which provided excellent stability and fit within the canal. Calcar reaming was carried out and trial fitting with a +0 40 mm head to reproduce leg length and offset appropriately. This was verified under fluoroscopic guidance. Trial components were removed and a size 7 standard offset collared Avenir stem was impacted into place with a +0 ceramic 40 mm head. Excellent stability and range of motion were noted and leg length reproduced according to measurements from the contralateral side. Thorough irrigation carried out with dilute Betadine solution and then washed further with normal saline solution and pulse lavage. Intra-articular mixture was injected subperiosteally throughout the joint capsule and subcutaneous areas. 1 g vancomycin was placed in the incision and fascia was closed with #1 PDS strata fix suture in a running fashion subcutaneous closure with buried Vicryl skin closure with subcuticular Monocryl and a dm dressing was applied. Patient was returned to recovery room in stable condition having tolerated the procedure well. Garland mandujano was present for the procedure and assisted in the patient positioning prepping draping retraction closure and dressings DIANA DANGELO MD Dec 22, 2020 13:50
[2020-12-22] MEDS ORDERED: WARFARIN 7.5 MG TABLET. PO ONE (16:00)
[2020-12-22] MEDS: IV NORMAL SALINE 1000ML BAG 1,000 ML IV SCH (19:29)
[2020-12-22] MEDS ORDERED: MAGNESIUM HYDROXIDE 2,400 MG/30 ML ORAL.SUSP. PO ONE (20:00)
[2020-12-22] MEDS: oxyCODONE IR 5 MG TABLET PO PRN (20:37)
[2020-12-23 03:00] VITALS: BP 130/75
[2020-12-23] MEDS ORDERED: MAGNESIUM HYDROXIDE 2,400 MG/30 ML ORAL.SUSP. PO PRN (06:00)
[2020-12-23 06:31] VITALS: BP 123/69
[2020-12-23] MEDS: traMADol 50 MG TABLET PO SCH ×3 (07:00→16:54)
[2020-12-23] MEDS: GABAPENTIN 100 MG CAPSULE. PO SCH ×3 (07:00→22:00)
[2020-12-23 07:33] LABS: PROTHROMBIN TIME PATIENT 15.3 SEC (11.7-14.0)
[2020-12-23] MEDS: IV NORMAL SALINE 1000ML BAG 1,000 ML IV SCH (07:45)
[2020-12-23] MEDS: FERROUS SULFATE 325 MG TABLET. PO SCH ×2 (08:07→16:33)
[2020-12-23] MEDS: ACETAMINOPHEN 500 MG TABLET PO SCH ×3 (08:07→18:06)
[2020-12-23] MEDS: MULTIVITAMIN with MINERAL TABLET. PO SCH (08:07)
[2020-12-23] MEDS: MELOXICAM 7.5 MG TABLET PO SCH (08:08)
[2020-12-23] MEDS: oxyCODONE IR 5 MG TABLET PO PRN ×3 (08:08→16:33)
[2020-12-23 09:41] LABS: HEMATOCRIT 35.1 % (39.0-53.0); HEMOGLOBIN 11.5 g/dL (13.0-17.5)
--- NOTE | 2020-12-23 09:58 | NUR ---
Pharmacy Warfarin Dosing Note S:Pharmacy consulted to assist with anticoagulation therapy started 12/22/20 with target INR: 1.6 - 2.5 O:DEBBY,WILFRIDO Boss is a 65 year old M with TKA LABS: Last INR: 1.3 Last HGB: Last HCT: Last PLT: Last dose of 7.5 mg given on 12/22/20 at 1700 Previous Regimen: Vitamin K given: N Drug Interaction Changes: Same Interacting Drug Ongoing Drug Interactions: A:INR of 1.3 is below desired range. Target range for this patient is: 1.6 - 2.5 P: Warfarin dose: 5 mg Today at 1600 Bridge Therapy: Next INR due IN AM Pharmacy anticoagulation service will continue to follow. CHANG HILARIO Jl, 12/23/20 [id number]
[2020-12-23] MEDS ORDERED: ONDANSETRON ODT 4 MG TAB.RAPDIS. PO PRN (12:00)
[2020-12-23] MEDS ORDERED: ONDANSETRON PF 4 MG/2 ML VIAL. IVP PRN (12:00)
[2020-12-23] MEDS ORDERED: WARFARIN 5 MG TABLET. PO ONE (16:00)
[2020-12-23] MEDS ORDERED: BISACODYL 10 MG SUPP.RECT. PR PRN (16:00)
[2020-12-23 18:05] VITALS: BP 120/57
--- NOTE | 2020-12-23 18:22 | NUR ---
During shift vital signs it was noted that patient had a slight temp which was rechecked with different thermometers. By mouth temp was 100.3, Forehead was 102.2, and axillary was 98.7. Patient does not feel feverish and his other vital signs are stable. Dr Killian at bedside and aware of the variance in temperatures. Tylenol given. Will continue to monitor.
--- NOTE | 2020-12-23 22:37 | PDOC ---
PROGRESS NOTES Date of Service DATE: 12/23/20 TIME: 22:34 Subjective Subjective Problems overnight: Getting up and around well pain well controlled Objective Vital Signs Vital Signs Date Time Temp Pulse Resp B/P (MAP) Pulse Ox O2 Delivery O2 Flow Rate FiO2 12/23/20 18:05 98.7 91 18 120/57 (78) 97 Room Air 98.7 12/22/20 10:20 6 Physical Exam Leg lengths equal distal neurovascular status intact Labs Laboratory Tests Test 12/22/20 06:12 12/23/20 05:40 Prothrombin Time 13.1 SEC (11.7-14.0) 15.3 SEC (11.7-14.0) Prothromb Time International Ratio 1.0 (0.8-1.1) 1.3 (0.8-1.1) Activated Partial Thromboplast Time 51 SEC (24-38) Hemoglobin 11.5 g/dL (13.0-17.5) Hematocrit 35.1 % (39.0-53.0) Mean Corpuscular Hemoglobin Concent 33 g/dL (31-37) Laboratory Tests Test 12/23/20 05:40 Hemoglobin 11.5 g/dL (13.0-17.5) Hematocrit 35.1 % (39.0-53.0) Mean Corpuscular Hemoglobin Concent 33 g/dL (31-37) Prothrombin Time 15.3 SEC (11.7-14.0) Prothromb Time International Ratio 1.3 (0.8-1.1) Imaging Intra-Op views show good reproduction of leg length offset and sizing of implant Assessment Assessment POD#1 total hip arthroplasty Plan Plan of Care Continue mobilize with physical therapy, Coumadin anticoagulation Justicifation of Admission Dx: Justifications for Admission: Justification of Admission Dx: N/A DIANA DANGELO MD Dec 23, 2020 22:37
[2020-12-24] MEDS: IV NORMAL SALINE 1000ML BAG 1,000 ML IV SCH (00:31)
[2020-12-24] MEDS: ACETAMINOPHEN 500 MG TABLET PO SCH ×3 (03:00→15:00)
[2020-12-24 04:10] LABS: PROTHROMBIN TIME PATIENT 16.7 SEC (11.7-14.0)
[2020-12-24] MEDS: GABAPENTIN 100 MG CAPSULE. PO SCH ×2 (06:00→09:19)
[2020-12-24] MEDS: traMADol 50 MG TABLET PO SCH ×3 (06:00→12:00)
[2020-12-24 06:08] VITALS: BP 131/74
--- NOTE | 2020-12-24 06:10 | NUR ---
Temp 98.7. Has refused pain meds. Ambulated in the halls w/o incident. Requests to stay in bed until breakfast. Anticipates dismissal today.
[2020-12-24] MEDS: MELOXICAM 7.5 MG TABLET PO SCH (07:52)
[2020-12-24] MEDS: FERROUS SULFATE 325 MG TABLET. PO SCH (07:53)
[2020-12-24] MEDS: MULTIVITAMIN with MINERAL TABLET. PO SCH (07:53)
[2020-12-24] MEDS: oxyCODONE IR 5 MG TABLET PO PRN (09:24)
--- NOTE | 2020-12-24 09:39 | NUR ---
Leonard is doing well. pain is controlled with oral medication. NO temperature this am .up in recliner.
[2020-12-24 10:45] LABS: HEMATOCRIT 36.6 % (39.0-53.0); HEMOGLOBIN 12.2 g/dL (13.0-17.5)
[2020-12-24] MEDS ORDERED: WARF-31 PO (11:21)
--- NOTE | 2020-12-24 11:24 | NUR ---
Pharmacy Warfarin Dosing Note S: Pharmacy consulted to assist with anticoagulation therapy started 12/22/20 O: DEBBY,WILFRIDO Boss is a 65 year old M with TKA LABS: Last INR: 1.4 Last HGB: Last HCT: Last PLT: Last dose of 5 mg given on 12/23/20 at 1700 Vitamin K given: N Ongoing Drug Interactions: A:INR of 1.4 is below desired range. Target range for this patient is: 1.6 - 2.5 P: Warfarin dose: 5 mg Prior to Discharge Next INR due ON THURSDAY 12/28, 01/04, 01/11 Pharmacy anticoagulation service will continue to follow. CHANG HILARIO [facility], 12/24/20 112
--- NOTE | 2020-12-24 12:19 | NUR ---
pharmacy reviewed and gave his Coumadin for home. requests that he go home on Lortab. States I still have some left over from when I had my knee scope done.
--- NOTE | 2020-12-24 12:59 | NUR ---
SW following. Discussed with RN, pt from home with spouse, room air, regular diet. RN anticipates discharge home today with [facility]. SW awaiting discharge orders. RAYMON will continue to follow. Addendum: 12/24/20 at 1613 by SAURABH ENNIS Discharge orders faxed to [facility].
[2020-12-24 13:00] VITALS: BP 135/98
[2020-12-24] MEDS ORDERED: WARFARIN 5 MG TABLET. PO ONE (14:00)
[2020-12-24] MEDS ORDERED: HYDR-2765 PO (15:57)
--- NOTE | 2020-12-24 15:59 | SNU/HH DC ---
DISCHARGE WITH HOME HEALTH DISCHARGE INFORMATION: Condition on Discharge: Stable CODE STATUS: Code Status: Full HOME HEALTH: Face to Face: I certify this patient is under my care and that I, or a nurse practitioner or physician's equity sales assistant working with me, had a face to face encounter that meets the physician face to face encounter requirements with this patient on [12/24/20]. Jail For: Assess/Skilled Observatio RN For Eval/Treatment: Yes Physical Therapy For: Evalulation/Treatment Pt Meets Homebound Status: Limited distance walking POST DISCHARGE ORDERS: Activity Instructions for Disc: Walk in house Weight Bearing Status after Di: No restrictions, As tolerated Bathing Instructions: Shower-keep dressing dry, No Tub Bath until see DIET AFTER DISCHARGE: Regular Wound/Incision Care: Ice to area for comfort, Keep wound/cast CDI, Keep wound elevated, Do not change dressing, May get incision wet Other wound/incision instructi: remove battery pack on monday unscrew tubing tape end down FOLLOW-UP: Follow Up With: f/u with Chris Corey on 01/06 at 1000 if need to resched call [phone] Warfarin Follow UP: [facility] to manage-?? call [phone] fax [phone] TREATMENT/EQUIPMENT ORDERS: Adaptive Equipment Issued: None CERTIFICATION STATEMENT: Certification Statement: Certification Statement: Based on the above finding, I certify that this patient is confined to the home and needs intermittent correction care, physical therapy and/or speech therapy, or continues to need occupational therapy.~ This patient is under my care, and I have initiated the establishment of the plan of care.~ This patient will be followed by myself or a community physician who will periodically review the plan of care. Home Meds Reported Medications Warfarin Sodium (WARFARIN SODIUM) 5 Mg Tablet, 5 MG PO DAILYWSUP for blood thinner, #45 TAB 12/24/20 Multivitamin (MULTI-DAY VITAMINS) 1 Each Tablet, 1 TAB PO DAILY, #30 TAB 11/09/15 DIANA DANGELO MD Dec 24, 2020 15:59
--- NOTE | 2020-12-24 16:26 | DS ---
DATE OF DISCHARGE: 12/24/2020 ORTHOPEDIC DISCHARGE SUMMARY PRINCIPAL DIAGNOSIS: Degenerative joint disease of right hip. PROCEDURE: Right total hip arthroplasty. DISPOSITION: Home with home health. DISPOSITION MEDICATIONS: Include warfarin to be managed by [facility], current dose is 5 mg daily; hydrocodone 7.5/325 one p.o. q. 6 hours p.r.n. pain, patient already has prescription at home. Continue multivitamin. ACTIVITY: Weightbearing as tolerated. Avoid extremes of range of motion. Maintain TORRES dressing. Next Monday remove suction tubing and tape over to maintain seal. Report any drainage leaking from the dressing, redness, fever, chills, uncontrolled pain or other problems. Follow up with Dr. Killian or Dr. Corey 2 weeks postoperatively. BRIEF DESCRIPTION OF HOSPITAL COURSE: The patient underwent an uncomplicated right total hip arthroplasty and was ambulating very well and had a low-grade fever on postop day #1 that resolved. He completed ambulation and transfers safely and was discharged home in stable condition with plans for home health. DIANA KILLIAN MD DR: IOANA/les JOB#: [id number] / [id number]
--- NOTE | 2020-12-24 16:49 | NUR ---
REVIEWED DISCHARGE INSTRUCTIONS WITH WILFRIDO AND . REVIEWED MEDICATIONS, SIDE EFFECTS OF COUMADIN AND LORTAB. REVIEWED INCISIONAL, DRESSING CARE, FOLLOW UP AND RESTRICTIONS TO ACTIVITIES OF DAILY LIVING SUCH DRIVING BATHING AND AMBULATION. HE IS GOING HOME WITH HOME HEALTH. DISMISSED TO HOME WITH
--- NOTE | 2020-12-25 09:16 | PATHOLOGY ---
[facility] Accession Number: [id number] . 01 Material submitted: . hip - RIGHT HIP BONE AND TISSUE. Modifiers: right . 01 Clinical history: . PRE-OPERATIVE DIAGNOSIS: RIGHT HIP DEGENERATION OPERATIVE PROCEDURE: RIGHT TOTAL HIP ARTHROPLASTY . 02 Diagnosis: Femoral head and separate segment of bone, right total hip arthroplasty: - Advanced degenerative arthritis, with focal subarticular cystic degeneration and fibrosis. . (JPM:mm; 12/24/2020) [facility] 12/24/2020 1556 Local . 02 Comment: There is no evidence of malignancy. . (JPM:mml; 12/24/2020) . 02 Electronically signed: . Himanshu Olson MD, Pathologist NPI- [id number] . 01 Gross description: . The specimen is received in formalin, labeled "Leonard Akins, right hip bone and tissue". Received is a femoral head measuring 5.7 x 5.7 x 4.5 cm and separately submitted femoral neck measuring 4.2 x 4.1 x 1.2 cm. The articular surface is pale spencer and smooth to irregular in contour with eburnation identified. A moderate amount of osteophytic lipping is present. Sectioning reveals yellow-spencer cut surfaces with multiple bone cysts identified ranging in size from 0.5-1.2 cm. The specimen is submitted representatively in cassettes A1 and A2, following decalcification. ([facility]; 12/23/2020) QAC/QAC 12/24/2020 1552 Local . 02 Pathologist provided ICD-10: M16.11 . 02 CPT . 841204, [id number] Specimen Comment: A courtesy copy of this report has been sent to [phone] Specimen Comment: Report sent to Performed at: 01 [facility] [address], [place] [id number] MD Delvis Pa MD Phone: [phone] Performed at: 02 [facility] [address] [place], [place] [id number] MD Himanshu Olson MD Phone: [phone]
== END 2020-12-24 16:30 | disposition home health service (06) ==
LOC: SURG 06:05 → 4 SOUTHEST 07:45
PROVIDERS: ADMIT Orthopaedic Surgery; ATTEND Orthopaedic Surgery
DX: M16.11 Unilateral primary osteoarthritis, right hip (principal); M17.11 Unilateral primary osteoarthritis, right knee; M76.30 Iliotibial band syndrome, unspecified leg; H91.90 Unspecified hearing loss, unspecified ear; M21.70 Unequal limb length (acquired), unspecified site; Z87.442 Personal history of urinary calculi; Z96.641 Presence of right artificial hip joint; Z79.899 Other long term (current) drug therapy
CPT/HCPCS: 27130; 36415; 73502; 85014; 85018; 85610; 85730; 86850; 86900; 86901; 88304; 88311; 96365; 96366; 97116; 97150; 97162; 97166; 97530; 97535; A4213; A4930; A6223; A6258; A6402; A6550; C1755; C1776; G0378; G0379; J0171; J0690; J1100; J1885; J2250; J2270; J2405; J2704; J2795; J3010; J3370; J3490; J7030; 76000

== ENCOUNTER → 2021-07-14 | Outpatient (CLI) | payer MEDICARE ==
[~2021-07-14] MED LIST changes: -ACETAMINOPHEN 500 MG TABLET PO PRN; +CYCL10TA19 PO; -CYCL10TA2 PO; -GABAPENTIN 300 MG CAPSULE. PO PRN; -HYDROmorphone 2 MG/ML VIAL IVP PRN; -IV RINGERS,LACTATED 1000ML 1,000 ML IV SCH; -MORPHINE SULFATE 2 MG/ML VIAL. IVP PRN; -MORPHINE SULFATE 5 MG, KETOROLAC 30MG VIAL 30 MG, ROPIVacaine 0.5% PF 60 ML, EPINEPHrin... INT ART ONE; -PROCHLORPERAZINE 10 MG/2 ML VIAL. IVP PRN; -TRANEXAMIC ACID 1,000 MG in IV NS 50ML -- 1ST BAG INJ ONE; +WARF-31 PO; -ceFAZolin SODIUM IV Push 1 GM VIAL. IVP PRN; -fentaNYL PF VIAL 100 MCG/2 ML VIAL IVP PRN
--- NOTE | 2021-07-14 09:25 | KCIC ---
EXAM: Lumbar spine, 5 views. HISTORY: Pain. COMPARISON: None. FINDINGS: 5 views of the lumbar spine are obtained. There is mild lumbar levoscoliosis centered at L4 . There is multilevel endplate remodeling. There is disc space narrowing, vacuum phenomenon and facet arthropathy at the lumbosacral junction. IMPRESSION: Multilevel degenerative change, primarily at the lumbosacral junction. No acute osseous f inding. Electronically signed by: Denisse Hernandez MD (07/14/2021 9:22 AM) [id number]
== END ==
LOC: KCIC 09:00
PROVIDERS: ATTEND Physician Assistant
DX: M47.817 Spondylosis without myelopathy or radiculopathy, lumbosacral region (principal); M48.07 Spinal stenosis, lumbosacral region; M41.86 Other forms of scoliosis, lumbar region; M54.42 Lumbago with sciatica, left side
CPT/HCPCS: 72110

== ENCOUNTER → 2021-07-20 | Outpatient (CLI) | payer MEDICARE ==
--- NOTE | 2021-07-20 13:45 | KCIC ---
MR LUMBAR SPINE WO -[id number] Date: 07/20/2021 11:11 AM Indication: OSTEOARTHRITIS, LEFT THIGH PAIN, ACUTE MIDLINE LOW BACK PAIN W/ LT SCIATICA. Prior surge ry 2015. New LBP x 2 weeks but moreso left thigh pain. Comparison: Radiograph 07/14/2021. 01/12/2016 Technique: Multi-planar multi-weighted magnetic resonance imaging of the lumbar spine was performed w ithout intravenous contrast using the standard lumbar spine protocol. FINDINGS: The lumbar spine is normally aligned. No acute fracture. Mild multilevel degenerative disc desiccatio n and disc height loss, moderate at L5-S1. No marrow replacing process to suggest malignancy. The conus terminates at a normal level. No abnormal signal is seen within the visualized distal spina l cord. No clumping of intrathecal nerve roots. No soft tissue abnormality in the visualized abdomen or pelvis. T12-L1: No disc bulge. No facet arthropathy. No significant spinal stenosis or neural foraminal narro wing. L1-L2: Disc bulge. Mild facet arthropathy. No significant spinal stenosis. Mild right neural foramina l narrowing. L2-L3: Disc bulge with annular tear and left paracentral inferiorly migrating extrusion which extend 17 mm below the disc space. Severe narrowing of the left lateral recess with mass effect on the desce nding left L3 nerve root and abutment of the left L4 nerve root. This is new from the exam of 01/12/20 16 Mild spinal canal stenosis. Mild to moderate bilateral neural foraminal narrowing. L3-L4: Disc bulge. Mild facet arthropathy. Mild spinal stenosis. Mild bilateral neural foraminal narr owing. L4-L5: Right hemilaminectomy. Moderate right and severe left facet arthropathy. No spinal stenosis. M ild lateral recess narrowing. Moderate bilateral neural foraminal narrowing. L5-S1: Disc bulge with left far lateral protrusion which abuts the exiting left L5 nerve. Mild right and severe left facet arthropathy. No spinal stenosis. Mild right and moderate to severe left neural foraminal narrowing. IMPRESSION: Lumbar spondylosis, worst at L2-3 where a new disc extrusion severely narrows the left lateral recess . Electronically signed by: Gianni Lara MD (07/20/2021 1:42 PM) [facility]
== END ==
LOC: KCIC MRI 10:46
PROVIDERS: ATTEND Physician Assistant
DX: M47.26 Other spondylosis with radiculopathy, lumbar region (principal); M51.16 Intervertebral disc disorders with radiculopathy, lumbar region; M51.27 Other intervertebral disc displacement, lumbosacral region; M48.8X7 Other specified spondylopathies, lumbosacral region; M48.062 Spinal stenosis, lumbar region with neurogenic claudication; M79.652 Pain in left thigh
CPT/HCPCS: 72148